=== PATIENT | male | born 1995 | race Two or more races ===

== ENCOUNTER 2018-03-09 08:41 | Emergency (ER) | payer OTHER ==
[~2018-03-09] VITALS: Ht 175.3 cm; Wt 75.0 kg
[2018-03-09 08:46] VITALS: BP 133/84; PULSE 87; RESP 18; TEMP 99.1; O2SAT 99
[2018-03-09 08:56] VITALS: BP 133/84; PULSE 87; RESP 18; TEMP 99.1; O2SAT 99
[2018-03-09] MEDS: SODIUM CHLOR 0.9% 1000 ML INJ 1,000 ML IV SCH ×2 (08:58→09:21)
[2018-03-09] MEDS ORDERED: SODIUM CHLORIDE 0.9% FLUSH 10 ML FLUSH IV FLUSH PRN (09:00)
[2018-03-09] MEDS: ONDANSETRON ODT 4 MG TAB PO ONE ×2 (09:15→09:21)
[2018-03-09] MEDS: MORPHINE SULFATE 4 MG/ML INJ IV PUSH ONE ×2 (09:15→09:21)
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
[2018-03-09 09:30] LABS: AUTOMATED NEUTROPHIL # 5.8 TH/MM3 (1.8-7.7); BASOPHIL % 0.4 % (0.0-2.0); EOSINOPHIL % 0.7 % (0.0-4.0); HEMATOCRIT 40.4 % (39.0-51.0); HEMOGLOBIN 13.8 GM/DL (13.0-17.0); LYMPH % 10.4 % (9.0-44.0); LYMPHOCYTE # 0.7 TH/MM3 (1.0-4.8); MEAN CELL VOLUME 83.7 FL (80.0-100.0); MEAN CORPUSCULAR HEMOGLOBIN 28.7 PG (27.0-34.0); MEAN CORPUSCULAR HGB CONC 34.3 % (32.0-36.0); MEAN PLATELET VOLUME 7.3 FL (7.0-11.0); MONO % 6.7 % (0.0-8.0); MONOCYTE # 0.5 TH/MM3 (0-0.9); NEUT % 81.8 % (16.0-70.0); PLATELET COUNT 265 TH/MM3 (150-450); RED BLOOD COUNT 4.82 MIL/MM3 (4.50-5.90); RED CELL DISTRIBUTION WIDTH 12.5 % (11.6-17.2); WHITE BLOOD COUNT 7.1 TH/MM3 (4.0-11.0)
[2018-03-09 09:40] LABS: PROTHROMBIN TIME - PATIENT 10.1 SEC (9.8-11.6)
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
[2018-03-09 09:44] LABS: BICARBONATE 24.3 MEQ/L (21.0-32.0); CREATININE 0.96 MG/DL (0.60-1.30)
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
[2018-03-09] MEDS ORDERED: IOHEXOL 350 MG/ML 10 ML VIAL (for RAD DIAG) IVCONTRAST ONE (11:01)
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
[2018-03-09] MEDS ORDERED: IBUP1TAB7 PO (11:59)
[2018-03-09] MEDS ORDERED: ROBA500T PO (11:59)
[2018-03-09] MEDS ORDERED: KETOROLAC TROMETHAMINE 30 MG/ML (IVP) VIAL IV PUSH ONE (12:00)
[2018-03-09 12:54] VITALS: BP 113/69
--- NOTE | 2018-03-09 14:52 | EKG ---
Date Performed: 03/09/2018 Time Performed: 11:10:19 PTAGE: 23 years EKG: Sinus rhythm NORMAL ECG NO PREVIOUS TRACING DOCTOR: Blair Dorman Interpretating Date/Time 03/09/2018 14:47:22
== END 2018-03-09 12:55 | disposition home or self-care (01) ==
LOC: NEPD 08:41
DX: M54.2 Cervicalgia (principal); R51 Headache; M54.5 Low back pain; M54.6 Pain in thoracic spine; R07.89 Other chest pain; V47.6XXA Car passenger injured in collision with fixed or stationary object in traffic accident, initial encounter; Y92.410 Unspecified street and highway as the place of occurrence of the external cause
CPT/HCPCS: 70450; 71045; 71260; 72125; 72129; 72132; 72170; 74177; 80048; 85025; 85610; 85730; 93005; 96374; 99285; J1885; Q9967; J2270; J7030